=== PATIENT | male | born 1980 ===

== ENCOUNTER 2021-09-15 05:45 | Day surgery (SDC) | payer OTHER ==
[~2021-09-15 05:45] MED LIST: ATACAND HCT 321 EAC1 PO
[2021-09-15] MEDS ORDERED: PERCOCET 5-3251 EACH PO (09:59)
== END 2021-09-15 12:55 | disposition home or self-care (01) ==
LOC: CIR.AMB 05:45
PROVIDERS: ATTEND Surgery
DX: K64.4 Residual hemorrhoidal skin tags (principal); K64.8 Other hemorrhoids; Z20.822 Contact with and (suspected) exposure to COVID-19